=== PATIENT | female | born 1935 | race Caucasian/White ===

== ENCOUNTER 2020-03-22 11:57 | Day surgery (SDC) | payer MEDICARE, OTHER ==
[~2020-03-22 11:57] MED LIST: DIPRIVAN 200 MG/20 ML IV ONE; Ketamine HCl 50 MG/ML ONE
[2020-03-22] MEDS ORDERED: Sodium Chloride 0.9(Preservative Free) 10 ML IJ ONE (11:58)
[2020-03-22] MEDS ORDERED: Depo-Medrol 40 MG/ML IM ONE (11:58)
--- NOTE | 2020-03-22 14:43 | XRAY ---
Indication: Right L4-S1 transforaminal JENNIFER. Intraoperative fluoroscopy was provided for 1 minute 6 seconds. 4 digital spot images submitted for interpretation demonstrates posterior needle tips projecting over the expected right L4 and L5 nerve roots. Small amount of contrast injected for needle tip placement. Correlate with intraoperative findings/report.
--- NOTE | 2020-03-22 14:58 | XRAY ---
1 minute and 6 seconds fluoroscopy time in surgery for right L4-S1 transforaminal JENNIFER.
[2020-03-22] MEDS ORDERED: Lactated Ringers 1,000 ML IV ONE (15:11)
== END 2020-03-22 13:50 | disposition home or self-care (01) ==
LOC: SDC-PAIN 11:57
PROVIDERS: ATTEND Psychiatry & Neurology Pain Medicine
DX: M54.16 Radiculopathy, lumbar region (principal); I10 Essential (primary) hypertension; F41.8 Other specified anxiety disorders; F03.90 Unspecified dementia, unspecified severity, without behavioral disturbance, psychotic disturbance, mood disturbance, and anxiety; Z79.899 Other long term (current) drug therapy
CPT/HCPCS: 64483; 64484; 72100; 77003; 99100; J1030; J2704; Q9966

== ENCOUNTER 2020-09-27 12:51 | Day surgery (SDC) | payer MEDICARE, OTHER ==
[2020-09-27] MEDS ORDERED: Depo-Medrol 40 MG/ML IM ONE (12:52)
[2020-09-27] MEDS ORDERED: Sodium Chloride 0.9(Preservative Free) 10 ML IJ ONE (12:52)
[2020-09-27] MEDS ORDERED: DIPRIVAN 200 MG/20 ML IV ONE (14:47)
[2020-09-27] MEDS ORDERED: Ketamine HCl 50 MG/ML ONE (15:00)
[2020-09-27] MEDS ORDERED: TRANDATE 20 MG/4 ML SYRINGE IV ONE (15:09)
[2020-09-27] MEDS ORDERED: Lactated Ringers 1,000 ML IV ONE (16:22)
--- NOTE | 2020-09-27 16:46 | XRAY ---
Indication: Right L4-S1 transforaminal JENNIFER. Intraoperative fluoroscopy provided for 41 seconds. 4 digital spot imagea submitted for interpretation demonstrates posterior needle tips projecting over the expected right L4 and L5 nerve roots. Small amount of contrast injected for needle tip placement. Correlate with intraoperative findings/report.
--- NOTE | 2020-09-27 16:51 | XRAY ---
41 seconds fluoroscopy time in surgery for right L4-S1 transforaminal JENNIFER.
== END 2020-09-27 15:16 | disposition home or self-care (01) ==
LOC: SDC-PAIN 12:51
PROVIDERS: ATTEND Psychiatry & Neurology Pain Medicine
DX: M54.16 Radiculopathy, lumbar region (principal); I10 Essential (primary) hypertension; F41.8 Other specified anxiety disorders; F03.90 Unspecified dementia, unspecified severity, without behavioral disturbance, psychotic disturbance, mood disturbance, and anxiety; Z79.899 Other long term (current) drug therapy
CPT/HCPCS: 64483; 64484; 72100; 77003; J1030; J2704; Q9966

== ENCOUNTER 2020-11-01 09:53 | Day surgery (SDC) | payer MEDICARE, OTHER ==
[2020-11-01] MEDS ORDERED: Depo-Medrol 40 MG/ML IM ONE (09:54)
[2020-11-01] MEDS ORDERED: Xylocaine 1% Vial 30 ML PF IJ ONE (09:54)
[2020-11-01] MEDS ORDERED: Sodium Chloride 0.9(Preservative Free) 10 ML IJ ONE (09:54)
[2020-11-01] MEDS ORDERED: DIPRIVAN 200 MG/20 ML IV ONE (10:49)
--- NOTE | 2020-11-01 11:56 | XRAY ---
Indication: Lumbar JENNIFER. Intraoperative fluoroscopy provided for 15 seconds. 3 digital spot images submitted for interpretation demonstrates midline posterior needle tip projecting just posterior to the lumbosacral interspace. Small amount of contrast injected for needle tip placement. Correlate with intraoperative findings/report.
--- NOTE | 2020-11-01 11:59 | XRAY ---
15 seconds fluoroscopy time in surgery for lumbar JENNIFER.
[2020-11-01] MEDS ORDERED: Lactated Ringers 1,000 ML IV ONE (16:31)
== END 2020-11-01 11:23 | disposition home or self-care (01) ==
LOC: SDC-PAIN 09:53
PROVIDERS: ATTEND Psychiatry & Neurology Pain Medicine
DX: M54.16 Radiculopathy, lumbar region (principal); I10 Essential (primary) hypertension; F41.8 Other specified anxiety disorders; F03.90 Unspecified dementia, unspecified severity, without behavioral disturbance, psychotic disturbance, mood disturbance, and anxiety
CPT/HCPCS: 62321; 72100; 77003; J1030; J2001; J2704; Q9966

== ENCOUNTER 2020-12-13 11:41 | Day surgery (SDC) | payer MEDICARE, OTHER ==
[~2020-12-13 11:41] MED LIST changes: -Ketamine HCl 50 MG/ML ONE; +Lactated Ringers 1,000 ML IV ONE
[2020-12-13] MEDS ORDERED: Depo-Medrol 40 MG/ML IM ONE (11:42)
[2020-12-13] MEDS ORDERED: BUPIVACAINE 0.5% VIAL IJ ONE (11:42)
[2020-12-13] MEDS ORDERED: DIPRIVAN 200 MG/20 ML IV ONE ×2 (14:04→14:05)
--- NOTE | 2020-12-13 15:30 | XRAY ---
Indication: Bilateral SI joint injections. Intraoperative fluoroscopy provided for 24 seconds. 4 digital spot images submitted for interpretation demonstrates posterior needle tips projecting over the inferior left and right SI joint. Correlate with intraoperative findings/report.
[2020-12-13] MEDS ORDERED: Lactated Ringers 1,000 ML IV ONE (15:57)
--- NOTE | 2020-12-13 17:40 | XRAY ---
24 seconds of fluoroscopy was used in surgery for bilateral SI joint injections.
== END 2020-12-13 14:25 | disposition home or self-care (01) ==
LOC: SDC-PAIN 11:41
PROVIDERS: ATTEND Psychiatry & Neurology Pain Medicine
DX: M46.1 Sacroiliitis, not elsewhere classified (principal); I10 Essential (primary) hypertension; F32.9 Major depressive disorder, single episode, unspecified; F41.9 Anxiety disorder, unspecified; F03.90 Unspecified dementia, unspecified severity, without behavioral disturbance, psychotic disturbance, mood disturbance, and anxiety; Z79.899 Other long term (current) drug therapy
CPT/HCPCS: 27096; 72202; 77002; G0260; 99100; J1030; J2704

== ENCOUNTER 2021-01-10 10:48 | Day surgery (SDC) | payer MEDICARE, OTHER ==
[2021-01-10] MEDS ORDERED: BUPIVACAINE 0.5% VIAL IJ ONE (10:49)
[2021-01-10] MEDS ORDERED: Depo-Medrol 80 MG/ML IM ONE (10:49)
[2021-01-10] MEDS ORDERED: DIPRIVAN 200 MG/20 ML IV ONE (11:40)
--- NOTE | 2021-01-10 13:13 | XRAY ---
Indication: Right SI joint injection. Intraoperative fluoroscopy provided for 11 seconds. 2 digital spot images submitted for interpretation demonstrates posterior needle tip projecting over the inferior right SI joint. Correlate with intraoperative findings/report.
--- NOTE | 2021-01-10 13:25 | XRAY ---
11 seconds fluoroscopy time in surgery for injection of the right SI joint.
[2021-01-10] MEDS ORDERED: Lactated Ringers 1,000 ML IV ONE (15:32)
== END 2021-01-10 12:10 | disposition home or self-care (01) ==
LOC: SDC-PAIN 10:48
PROVIDERS: ATTEND Psychiatry & Neurology Pain Medicine
DX: M46.1 Sacroiliitis, not elsewhere classified (principal); I10 Essential (primary) hypertension; F41.9 Anxiety disorder, unspecified; F32.9 Major depressive disorder, single episode, unspecified; F03.90 Unspecified dementia, unspecified severity, without behavioral disturbance, psychotic disturbance, mood disturbance, and anxiety; Z79.899 Other long term (current) drug therapy
CPT/HCPCS: 27096; 72020; 77002; G0260; 99100; J1040; J2704

== ENCOUNTER 2021-02-07 13:23 | Day surgery (SDC) | payer MEDICARE, OTHER ==
[2021-02-07] MEDS ORDERED: Sodium Chloride 0.9(Preservative Free) 10 ML IJ ONE (13:24)
[2021-02-07] MEDS ORDERED: Depo-Medrol 40 MG/ML IM ONE (13:24)
[2021-02-07] MEDS ORDERED: Lactated Ringers 1,000 ML IV ONE (14:57)
[2021-02-07] MEDS ORDERED: DIPRIVAN 200 MG/20 ML IV ONE (15:33)
--- NOTE | 2021-02-07 16:52 | XRAY ---
28 seconds of fluoroscopy was used in surgery for a right L3-L4, L4-L5 transforaminal JENNIFER.
--- NOTE | 2021-02-07 16:54 | XRAY ---
Indication: Right L3-L5 transforaminal JENNIFER. Intraoperative fluoroscopy provided for 28 seconds. 3 digital spot image submitted for interpretation demonstrates posterior needle tips projecting over the expected right L4 and L5 nerve roots. Small amount of contrast injected for needle tip placement. Correlate with intraoperative findings/report.
== END 2021-02-07 16:05 | disposition home or self-care (01) ==
LOC: SDC-PAIN 13:23
PROVIDERS: ATTEND Psychiatry & Neurology Pain Medicine
DX: M54.16 Radiculopathy, lumbar region (principal); Z79.899 Other long term (current) drug therapy
CPT/HCPCS: 64483; 64484; 72100; 77003; J1030; J2704; Q9966

== ENCOUNTER 2021-03-21 12:23 | Day surgery (SDC) | payer MEDICARE, OTHER ==
[2021-03-21] MEDS ORDERED: Depo-Medrol 40 MG/ML IM ONE (12:24)
[2021-03-21] MEDS ORDERED: BUPIVACAINE 0.5% VIAL IJ ONE (12:24)
[2021-03-21] MEDS ORDERED: DIPRIVAN 200 MG/20 ML IV ONE (12:42)
[2021-03-21] MEDS ORDERED: Lactated Ringers 1,000 ML IV ONE (13:18)
--- NOTE | 2021-03-21 14:04 | XRAY ---
9 seconds of fluoroscopy was used in surgery for a right sacroiliac joint injection.
--- NOTE | 2021-03-21 14:14 | XRAY ---
Indication: Right SI joint injection. Intraoperative fluoroscopy provided for 9 seconds. 2 digital spot images submitted for interpretation demonstrates posterior needle tip projecting over the inferior right SI joint. Correlate with intraoperative findings/report.
== END 2021-03-21 13:47 | disposition home or self-care (01) ==
LOC: SDC-PAIN 12:23
PROVIDERS: ATTEND Psychiatry & Neurology Pain Medicine
DX: M46.1 Sacroiliitis, not elsewhere classified (principal); Z79.899 Other long term (current) drug therapy
CPT/HCPCS: 27096; 72020; 77002; G0260; 99100; J1030; J2704

== ENCOUNTER 2021-04-04 15:18 | Day surgery (SDC) | payer MEDICARE, OTHER ==
[2021-04-04] MEDS ORDERED: LIDOCAINE HCL 2% 100 MG/5 ML IJ ONE (15:19)
[2021-04-04] MEDS ORDERED: Depo-Medrol 40 MG/ML IM ONE (15:19)
[2021-04-04] MEDS ORDERED: Lactated Ringers 1,000 ML IV ONE (16:19)
[2021-04-04] MEDS ORDERED: DIPRIVAN 200 MG/20 ML IV ONE (16:43)
--- NOTE | 2021-04-05 11:21 | XRAY ---
8 seconds fluoroscopy time in surgery for bilateral L4-S1 MBB.
--- NOTE | 2021-04-07 23:19 | XRAY ---
Indication: Bilateral L4-L5, L5-S1 MBB. Intraoperative fluoroscopy was provided for an unspecified time (technologist left no time on note). A single digital spot image submitted for interpretation demonstrates posterior needle tips projected over the expected left and right L4-S1 nerve roots. Correlate with intraoperative findings/report.
== END 2021-04-04 17:07 | disposition home or self-care (01) ==
LOC: SDC-PAIN 15:18
PROVIDERS: ATTEND Psychiatry & Neurology Pain Medicine
DX: M47.816 Spondylosis without myelopathy or radiculopathy, lumbar region (principal); Z79.899 Other long term (current) drug therapy
CPT/HCPCS: 64493; 64494; 72020; 77002; J1030; J2704

== ENCOUNTER 2021-04-25 14:19 | Day surgery (SDC) | payer MEDICARE, OTHER ==
[2021-04-25] MEDS ORDERED: Sodium Chloride 0.9(Preservative Free) 10 ML IJ ONE (14:20)
[2021-04-25] MEDS ORDERED: Depo-Medrol 40 MG/ML IM ONE (14:20)
[2021-04-25] MEDS ORDERED: DIPRIVAN 200 MG/20 ML IV ONE (16:26)
[2021-04-25] MEDS ORDERED: Lactated Ringers 1,000 ML IV ONE (18:09)
--- NOTE | 2021-04-25 21:19 | XRAY ---
Indication: Right L4-S1 transforaminal JENNIFER. Intraoperative fluoroscopy provided for 36 seconds. 2 digital spot image submitted for interpretation demonstrates posterior needle tips projecting over the expected right L4 and L5 nerve roots. Small amount of contrast injected for needle tip placement. Correlate with intraoperative findings/report.
--- NOTE | 2021-04-26 09:10 | XRAY ---
36 seconds fluoroscopy time in surgery for right L4-S1 transforaminal JENNIFER.
== END 2021-04-25 16:55 | disposition home or self-care (01) ==
LOC: SDC-PAIN 14:19
PROVIDERS: ATTEND Psychiatry & Neurology Pain Medicine
DX: M54.16 Radiculopathy, lumbar region (principal); Z79.899 Other long term (current) drug therapy
CPT/HCPCS: 64483; 64484; 72100; 77003; J1030; J2704; Q9966

== ENCOUNTER 2021-07-04 11:19 | Day surgery (SDC) | payer MEDICARE, OTHER ==
[2021-07-04] MEDS ORDERED: BUPIVACAINE 0.5% VIAL IJ ONE (11:20)
[2021-07-04] MEDS ORDERED: Depo-Medrol 40 MG/ML IM ONE (11:20)
[2021-07-04] MEDS ORDERED: Sodium Chloride 0.9% 10 ML FLUSH Syringe IJ ONE (11:20)
[2021-07-04] MEDS ORDERED: DIPRIVAN 200 MG/20 ML IV ONE ×2 (13:44→14:09)
[2021-07-04] MEDS ORDERED: Lactated Ringers 1,000 ML IV ONE (14:13)
--- NOTE | 2021-07-04 15:04 | XRAY ---
Indication: Right L3-L5 transforaminal JENNIFER. Intraoperative fluoroscopy provided for 54 seconds. 3 digital spot image submitted for interpretation demonstrate posterior needle tips projecting over the expected right L3 and L4 nerve roots. Small amount of contrast injected for needle tip placement. Correlate with intraoperative findings/report.
--- NOTE | 2021-07-04 15:06 | XRAY ---
Indication: Right SI joint injection. Intraoperative fluoroscopy provided for 10 seconds. 2 digital spot image submitted for interpretation demonstrate posterior needle tip projecting over the inferior right SI joint. Correlate with intraoperative findings/report.
--- NOTE | 2021-07-04 15:11 | XRAY ---
10 seconds of fluoroscopy was used in surgery for a right SI joint injection.
--- NOTE | 2021-07-04 15:20 | XRAY ---
54 seconds of fluoroscopy was used in surgery for a right L3-L5 transforaminal JENNIFER.
== END 2021-07-04 14:18 | disposition home or self-care (01) ==
LOC: SDC-PAIN 11:19
PROVIDERS: ATTEND Psychiatry & Neurology Pain Medicine
DX: M54.16 Radiculopathy, lumbar region (principal); M46.1 Sacroiliitis, not elsewhere classified; I10 Essential (primary) hypertension; Z79.899 Other long term (current) drug therapy
CPT/HCPCS: 27096; 64483; 64484; 72020; 72100; 77002; 77003; G0260; J1030; J2704; Q9966

== ENCOUNTER 2021-09-12 11:45 | Day surgery (SDC) | payer MEDICARE, OTHER ==
[2021-09-12] MEDS ORDERED: Depo-Medrol 40 MG/ML IM ONE (11:46)
[2021-09-12] MEDS ORDERED: Sodium Chloride 0.9(Preservative Free) 10 ML IJ ONE (11:46)
[2021-09-12] MEDS ORDERED: BUPIVACAINE 0.5% VIAL IJ ONE (11:46)
[2021-09-12] MEDS ORDERED: Lactated Ringers 1,000 ML IV ONE (14:15)
[2021-09-12] MEDS ORDERED: DIPRIVAN 200 MG/20 ML IV ONE (14:36)
--- NOTE | 2021-09-12 16:55 | XRAY ---
Indication: Right L4-S1 transforaminal JENNIFER. Intraoperative fluoroscopy provided for 52 seconds. 4 digital spot image submitted for interpretation demonstrates posterior needle tips projecting over the expected right L4 and L5 nerve roots. Small amount of contrast injected for needle tip placement. Correlate with intraoperative findings/report.
--- NOTE | 2021-09-12 16:57 | XRAY ---
Indication: Right SI joint injection. Intraoperative fluoroscopy provided for 8 seconds. 2 digital spot image submitted for interpretation demonstrates posterior needle tip projecting over the inferior right SI joint. Correlate with intraoperative findings/report.
--- NOTE | 2021-09-12 17:04 | XRAY ---
8 seconds fluoroscopy time in surgery for injection of the right SI joint.
--- NOTE | 2021-09-12 17:04 | XRAY ---
52 seconds fluoroscopy time in surgery for right L3-L5 transforaminal JENNIFER.
== END 2021-09-12 15:10 | disposition home or self-care (01) ==
LOC: SDC-PAIN 11:45
PROVIDERS: ATTEND Psychiatry & Neurology Pain Medicine
DX: M54.16 Radiculopathy, lumbar region (principal); M46.1 Sacroiliitis, not elsewhere classified; Z79.899 Other long term (current) drug therapy
CPT/HCPCS: 27096; 64483; 64484; 72020; 72100; 77002; 77003; G0260; 99100; J1030; J2704; Q9966

== ENCOUNTER 2022-02-06 09:23 | Day surgery (SDC) | payer MEDICARE, OTHER ==
[2022-02-06] MEDS ORDERED: Marcaine Mpf 0.5% Vial 30 Ml IJ ONE (09:24)
[2022-02-06] MEDS ORDERED: Sodium Chloride 0.9(Preservative Free) 10 ML IJ ONE (09:24)
[2022-02-06] MEDS ORDERED: Depo-Medrol 40 MG/ML IM ONE (09:24)
[2022-02-06] MEDS ORDERED: Lactated Ringers 1,000 ML IV ONE (12:04)
[2022-02-06] MEDS ORDERED: DIPRIVAN 200 MG/20 ML IV ONE (12:48)
--- NOTE | 2022-02-06 16:27 | XRAY ---
Indication: Right greater trochanter bursa injection. Intraoperative fluoroscopy provided for 5 seconds. Single digital spot image obtained prone submitted for interpretation demonstrates needle tip just lateral to the right greater trochanter. Small amount of contrast injected for needle tip placement. Correlate with intraoperative findings/report.
--- NOTE | 2022-02-06 16:27 | XRAY ---
Indication: Right L3-L5 transforaminal JENNIFER. Intraoperative fluoroscopy provided for 24 seconds. 4 digital spot images submitted for interpretation demonstrates posterior needle tips projecting over the expected right L3 and L4 nerve roots. Small amount of contrast injected for needle tip placement. Correlate with intraoperative findings/report.
--- NOTE | 2022-02-06 16:31 | XRAY ---
24 seconds of fluoroscopy was used in surgery for a right L3-L5 transforaminal JENNIFER.
--- NOTE | 2022-02-06 16:31 | XRAY ---
5 seconds of fluoroscopy was used in surgery for a right hip greater trochanteric bursa injection.
== END 2022-02-06 13:17 | disposition home or self-care (01) ==
LOC: SDC-PAIN 09:23
PROVIDERS: ATTEND Psychiatry & Neurology Pain Medicine
DX: M54.16 Radiculopathy, lumbar region (principal); M70.61 Trochanteric bursitis, right hip; E11.9 Type 2 diabetes mellitus without complications; Z79.899 Other long term (current) drug therapy
CPT/HCPCS: 20610; 64483; 64484; 72100; 73501; 77002; 77003; 82947; J1030; J2704; Q9966

== ENCOUNTER 2022-03-13 07:50 | Day surgery (SDC) | payer MEDICARE, OTHER ==
[2022-03-13] MEDS ORDERED: Decadron 4 MG INJ IV ONE (07:51)
[2022-03-13] MEDS ORDERED: Depo-Medrol 40 MG/ML IM ONE (07:51)
[2022-03-13] MEDS ORDERED: XYLOCAINE-MPF 1% 5ML SDV IJ ONE (07:51)
[2022-03-13] MEDS ORDERED: BUPIVACAINE 0.5% VIAL IJ ONE (07:51)
[2022-03-13] MEDS ORDERED: DIPRIVAN 200 MG/20 ML IV ONE (09:32)
[2022-03-13] MEDS ORDERED: Lactated Ringers 1,000 ML IV ONE (10:58)
--- NOTE | 2022-03-13 11:33 | XRAY ---
Indication: Right piriformis and right greater trochanter bursa injections. Intraoperative fluoroscopy provided for 21 seconds. 3 digital spot images obtained prone submitted for interpretation demonstrate needle tip lateral to the right greater trochanter. Second needle tip projects over the right piriformis muscle. Small amount of contrast injected for both needle tip placement. Correlate with intraoperative findings/report.
--- NOTE | 2022-03-13 12:13 | XRAY ---
21 seconds fluoroscopy time in surgery for injections of the right piriformis muscle and bursa of the right greater trochanter.
== END 2022-03-13 09:45 | disposition home or self-care (01) ==
LOC: SDC-PAIN 07:50
PROVIDERS: ATTEND Psychiatry & Neurology Pain Medicine
DX: M70.61 Trochanteric bursitis, right hip (principal); M79.18 Myalgia, other site; Z79.899 Other long term (current) drug therapy
CPT/HCPCS: 20552; 20610; 73502; 77002; 82947; 99100; J1030; J1100; J2704; Q9966

== ENCOUNTER 2022-04-03 09:38 | Day surgery (SDC) | payer MEDICARE, OTHER ==
[2022-04-03] MEDS ORDERED: Depo-Medrol 40 MG/ML IM ONE (09:39)
[2022-04-03] MEDS ORDERED: Marcaine Mpf 0.5% Vial 30 Ml IJ ONE (09:39)
[2022-04-03] MEDS ORDERED: DIPRIVAN 200 MG/20 ML IV ONE (10:56)
--- NOTE | 2022-04-03 12:13 | XRAY ---
Indication: Right SI joints and right hip injections. Intraoperative fluoroscopy provided for 26 seconds. 4 digital spot images submitted for interpretation demonstrate posterior needle tip projecting over the right SI joint. Second needle tip lateral to the right femur neck with small amount of contrast injected for needle tip placement. Correlate with intraoperative findings/report.
[2022-04-03] MEDS ORDERED: Lactated Ringers 1,000 ML IV ONE (12:41)
--- NOTE | 2022-04-03 13:48 | XRAY ---
26 seconds fluoroscopy time in surgery for injections of the right SI joint and intra-articular joint space of the right hip.
== END 2022-04-03 11:25 | disposition home or self-care (01) ==
LOC: SDC-PAIN 09:38
PROVIDERS: ATTEND Psychiatry & Neurology Pain Medicine
DX: M46.1 Sacroiliitis, not elsewhere classified (principal); M16.11 Unilateral primary osteoarthritis, right hip; Z79.899 Other long term (current) drug therapy
CPT/HCPCS: 01992; 27096; 73501; 77002; 82947; 99100; G0260; J1030; J2704; Q9966

== ENCOUNTER 2022-05-01 06:34 | Day surgery (SDC) | payer MEDICARE, OTHER ==
[2022-05-01] MEDS ORDERED: Decadron 4 MG INJ IV ONE (06:35)
[2022-05-01] MEDS ORDERED: Sodium Chloride 0.9(Preservative Free) 10 ML IJ ONE (06:35)
[2022-05-01] MEDS ORDERED: Depo-Medrol 40 MG/ML IM ONE (06:35)
[2022-05-01] MEDS ORDERED: Xylocaine 1% Vial 30 ML PF IJ ONE (06:35)
--- NOTE | 2022-05-01 10:05 | XRAY ---
Indication: Right L3-L5 transforaminal JENNIFER. Intraoperative fluoroscopy provided for 38 seconds. 4 digital spot images submitted for interpretation demonstrates posterior needle tips projecting over the expected right L3 and L4 nerve roots. Small amount of contrast injected for needle placement. Correlate with intraoperative findings/report. Incidental unknown right lower back electronic device.
--- NOTE | 2022-05-01 10:05 | XRAY ---
Indication: Right piriformis injection. Intraoperative fluoroscopy provided for 17 seconds. Single digital spot image submitted for interpretation demonstrates posterior needle tip projecting over the expected right piriformis muscle. Small amount of contrast injected for needle placement. Correlate with intraoperative findings/report.
--- NOTE | 2022-05-01 10:44 | XRAY ---
38 seconds fluoroscopy time in surgery for right L3-L5 transforaminal JENNIFER.
--- NOTE | 2022-05-01 10:44 | XRAY ---
17 seconds fluoroscopy time in surgery for injection of the right piriformis muscle.
[2022-05-01] MEDS ORDERED: Lactated Ringers 1,000 ML IV ONE (12:22)
== END 2022-05-01 09:30 | disposition home or self-care (01) ==
LOC: SDC-PAIN 06:34
PROVIDERS: ATTEND Psychiatry & Neurology Pain Medicine
DX: M54.16 Radiculopathy, lumbar region (principal); M79.18 Myalgia, other site; Z79.899 Other long term (current) drug therapy
CPT/HCPCS: 20552; 64483; 64484; 72100; 72170; 77002; 77003; 99100; J1030; J1100; J2001; Q9966